=== PATIENT | female | born 1980 | race Caucasian/White ===

== ENCOUNTER 2017-12-02 09:55 | Emergency (ER) | payer MEDICAID ==
[2017-12-02 12:16] VITALS: BP 137/77
[2017-12-02] MEDS ORDERED: DUONEB *Not for PRN Use IH ONE (12:28)
--- NOTE | 2017-12-02 12:31 | Emergency Department Report ---
Minor Respiratory - HPI Chief Complaint: Upper Respiratory Infection Stated Complaint: FLU LIKE SYMPTOMS/CHEST PAIN Time Seen by Provider: 12/02/17 12:23 Duration: 2 Days Pain Location: Facial, Throat, Chest Severity: moderate Minor Respiratory: Yes Sore Throat, Yes Able to Tolerate Fluids, Yes Cough, Yes Chest Pain (W COUG), Yes Shortness of Breath, No Rhinorrhea, No Ear Pain, No Sick Contacts, No Hemoptysis, No Fever (AT NIGHT SUBJECTIVE) ED Review of Systems ROS: Stated complaint: FLU LIKE SYMPTOMS/CHEST PAIN Other details as noted in HPI Comment: All other systems reviewed and negative Constitutional: chills, fever ENT: throat pain Respiratory: cough ED Past Medical Hx - Past Medical History Previous Medical History?: No - Surgical History Past Surgical History?: No - Social History Smoking Status: Never Smoker Substance Use Type: None - Medications Home Medications: Home Medications Medication Instructions Recorded Confirmed Last Taken Type Oseltamivir [Tamiflu] 75 mg PO BID #10 capsule 12/02/17 Unknown Rx Minor Respiratory Exam - Exam General: Vital signs noted. No distress. Alert and acting appropriately. HEENT: Yes Pharyngeal Erythema, Yes Moist Mucous Membranes, Yes Frontal Tenderness, Yes Maxillary Tenderness, No Pharyngeal Exudates, No Rhinorrhea, No Conjuctival Injection Ear: Neither TM Bulge, Neither TM Erythema, Neither EAC Pain, Neither EAC Discharge Neck: Yes Supple, No Adenopathy Lungs: Yes Good Air Exchange, Yes Wheezes, No Ronchi, No Stridor, No Cough, No Labored Respirations, No Retractions, No Use of Accessory Muscles, No Other Abnormal Lung Sounds Heart: Yes Regular, No Murmur Abdomen: Yes Normal Bowel Sounds, No Tenderness, No Peritoneal Signs Skin: No Rash, No Edema Neurologic: Alert and oriented, no deficits. Musculoskeletal: Unremarkable. ED Course Vital Signs 12/02/17 12/02/17 10:00 12:10 Temperature 99.6 F Pulse Rate 83 Respiratory 20 16 Rate Blood Pressure 124/82 137/77 O2 Sat by Pulse 98 Oximetry - Reevaluation(s) Reevaluation #1: 12/02/17 14:15 INFLUENZA B POS RT TX XRAY NAP ED Medical Decision Making - EKG Data EKG shows normal: sinus rhythm - Radiology Data Radiology results: report reviewed, image reviewed - Medical Decision Making SEE NOTE - Differential Diagnosis URTI SINUSITIS/BRONCH V INFLUENZA Critical care attestation.: If time is entered above; I have spent that time in minutes in the direct care of this critically ill patient, excluding procedure time. ED Disposition Clinical Impression: Upper respiratory infection, Influenza Disposition: DC- TO HOME OR SELFCARE Is pt being admited?: No Does the pt Need Aspirin: No Condition: Stable Instructions: Upper Respiratory Infection (ED), Cold Symptoms (ED), Influenza ( ED) Additional Instructions: You have a positive influenza test today. Current home and rest, drink plenty of fluids, and stay away from young babies and old persons for you are contagious. Medication is ordered today in the emergency room. Such as Motrin and Tylenol for fever. Delsym may be used for cough. Follow-up with her primary care physician next week to ensure that she were getting better. Return to the emergency room if he develops a fever greater than 100.5 but does not respond and come down with the Motrin or Tylenol. Referrals: PRIMARY CARE [Primary Care Provider] - 3-[address] [facility] [Outside] - 3-5 Days [facility] [Outside] - 3-5 Days Time of Disposition: 13:19
--- NOTE | 2017-12-02 12:57 | XRay Report ---
XRAY CHEST TWO VIEWS: 12/02/17 09:55:00 CLINICAL: Cough. COMPARISON: None FINDINGS: Normal heart and pulmonary vasculature. The lungs are normally expanded and clear.The bones and soft tissues are unremarkable. IMPRESSION: Normal chest.No pneumonia.
== END 2017-12-02 14:26 | disposition home or self-care (01) ==
LOC: ED 09:55
DX: J11.1 Influenza due to unidentified influenza virus with other respiratory manifestations (principal); J06.9 Acute upper respiratory infection, unspecified
CPT/HCPCS: 71046; 87400; 93005; 93010; 94640